=== PATIENT | male | born 1995 | race African-American/Black ===

== ENCOUNTER 2021-11-23 12:15 | Emergency (ER) | payer BC ==
[~2021-11-23] VITALS: Ht 177.8 cm; Wt 69.0 kg
--- NOTE | 2021-11-23 12:46 | NUR ---
BIBS FOR ON/OFF PRESSURE LIKE CP SINCE MONDAY. TODAY WAS SEEN AT AN URGENT CARE AND WAS TOLD HE HAD ABNORMAL ECG. ADMITS TAKING COCAINE ON MONDAY. DENIES HAVING CP AT THIS TIME BUT C/O LEFT ARM NUMBNESS. THE PATIENT IS ALERT AND ORIENTED X4. IN ROOM AIR AND DENIES SOB. RESPIRATION REGULAR AND UNLABORED. THE PATIENT IS ATTACHED TO THE MONITOR. WILL CONTINUE TO MONITOR THE PATIENT.
[2021-11-23 13:07] LABS: BASOPHILS % (AUTO) 0.6 % (0.0-2.0); EOSINOPHILS % (AUTO) 1.2 % (0.0-6.0); HEMATOCRIT 46 % (39-51); HEMOGLOBIN 15.7 g/dL (13.5-17.5); LYMPHOCYTES # (AUTO) 1.1 K/uL (0.8-4.8); LYMPHOCYTES % (AUTO) 27.3 % (20.0-44.0); MEAN CORPUSCULAR HGB CONC 34 g/dl (31.0-36.0); MEAN CORPUSCULAR VOLUME 90 fL (80-96); MONOCYTES # (AUTO) 0.3 K/uL (0.1-1.30); MONOCYTES % (AUTO) 8.6 % (2.0-12.0); NEUTROPHILS # (AUTO) 2.4 K/uL (1.8-8.9); NEUTROPHILS % (AUTO) 62.3 % (43.0-81.0); PLATELET COUNT (AUTO) 185 K/uL (150-450); RED BLOOD CELL COUNT(AUTO) 5.09 MIL/uL (4.5-6.0); WHITE BLOOD COUNT (AUTO) 3.9 K/uL (4.3-11.0)
--- NOTE | 2021-11-23 13:16 | NUR ---
IV LINE ESTABLISHED RAC#[id number], BLOOD DRAWN AND SENT TO LAB; IV LINE SALINE LOCKED. PATIENT CONNECTED TO MONITOR.
[2021-11-23 13:19] LABS: CALCIUM, SERUM 9.4 mg/dL (8.5-10.1); CARBON DIOXIDE 31 mmol/L (21-32); CHLORIDE 105 mmol/L (98-107); GLUCOSE 76 mg/dL (74-106); POTASSIUM 3.6 mmol/L (3.5-5.1); SODIUM SERUM 144 mmol/L (136-145); UREA NITROGEN, BLOOD 11 mg/dL (7-18)
[2021-11-23] MEDS ORDERED: IBUP-1955 PO (15:30)
--- NOTE | 2021-11-23 15:54 | NUR ---
Patient discharged to home in stable condition. Written and verbal after care instructions given. Patient verbalizes understanding of instruction. IV line removed, no bleeding noted.
[2021-11-23 15:55] VITALS: BP 116/65
== END 2021-11-23 15:56 | disposition home or self-care (01) ==
LOC: ER 12:21
DX: R07.89 Other chest pain (principal); F14.10 Cocaine abuse, uncomplicated; Z88.0 Allergy status to penicillin; Z60.2 Problems related to living alone
CPT/HCPCS: 36415; 71045-TC; 80048-TC; 84484-TC; 85025-TC

== ENCOUNTER 2025-02-17 06:28 | Emergency (ER) | payer BC ==
[~2025-02-17] VITALS: Ht 177.8 cm; Wt 77.1 kg
[~2025-02-17 06:28] MED LIST: IBUP-1955 PO
[2025-02-17 07:35] LABS: PLATELET COUNT (AUTO) 202 K/uL (150-450); RED BLOOD CELL COUNT(AUTO) 5.09 MIL/uL (4.5-6.0); RED CELL DISTRIBUTION WIDTH 13.1 % (11.5-15.0); WHITE BLOOD COUNT (AUTO) 4.1 K/uL (4.3-11.0)
[2025-02-17] MEDS ORDERED: LIDOCAINE 5% (PATCH) 1 EA PATCH TP ONE (07:36)
[2025-02-17] MEDS ORDERED: ACETAMINOPHEN ES 500 MG TABLET ONE (07:36)
[2025-02-17] MEDS ORDERED: NAPROXEN 250 MG TABLET ONE (07:37)
[2025-02-17] MEDS: NAPROXEN 250 MG TABLET PO ONE (07:42)
[2025-02-17 07:44] LABS: CALCIUM, SERUM 9.2 mg/dL (8.5-10.1); CREATININE 0.9 mg/dL (0.6-1.3); SODIUM SERUM 145.0 mmol/L (136-145); UREA NITROGEN, BLOOD 15.0 mg/dL (7-18)
[2025-02-17] MEDS: ACETAMINOPHEN ES 500 MG TABLET PO ONE (07:44)
[2025-02-17] MEDS: LIDOCAINE 5% (PATCH) 1 EA PATCH TP SCH (07:44)
[2025-02-17] MEDS ORDERED: IBUP-1490 PO (09:08)
[2025-02-17] MEDS ORDERED: ACET-73 PO (09:08)
[2025-02-17] MEDS ORDERED: METH-649 PO (09:08)
[2025-02-17 09:28] VITALS: BP 119/77; TEMP 98.7; O2SAT 98
[2025-02-17 14:46] LABS: HIV-1/2 ANTIBODY NON REACTIVE (NONREACTIVE)
[2025-02-18 08:11] LABS: RAPID PLASMA REAGIN QUAL. Non Reactive (Non Reactive)
[2025-02-19 00:06] LABS: CHLAMYDIA TRACHOMATIS NAA Negative (Negative); NEISSERIA GONORRHOEAE NAA Negative (Negative)
== END 2025-02-17 09:30 | disposition home or self-care (01) ==
LOC: ER 06:28
DX: S39.012A Strain of muscle, fascia and tendon of lower back, initial encounter (principal); M62.830 Muscle spasm of back; R19.7 Diarrhea, unspecified; Z88.0 Allergy status to penicillin; Z88.8 Allergy status to other drugs, medicaments and biological substances; X58.XXXA Exposure to other specified factors, initial encounter; Y93.89 Activity, other specified; Y92.89 Other specified places as the place of occurrence of the external cause; Y99.8 Other external cause status
CPT/HCPCS: 36415; 80048-TC; 85025-TC; 86592; 86593; 87491; 87591; 87806